=== PATIENT | female | born 1995 | race Caucasian/White ===

== ENCOUNTER 2025-05-01 19:51 | Emergency (ER) | payer SELFPAY ==
[~2025-05-01] VITALS: Ht 172.7 cm; Wt 125.0 kg
[2025-05-01 19:54] VITALS: O2SAT 99
[2025-05-01 19:58] VITALS: BP 122/70; PULSE 65; RESP 18; TEMP 36.9; O2SAT 100
[2025-05-01] MEDS ORDERED: KETOROLAC 30MG/ML VIAL IM ONE (21:15)
[2025-05-01] MEDS ORDERED: KETO10TA2 MT (21:25)
== END 2025-05-01 21:50 | disposition left against medical advice (07) ==
LOC: ER 19:51
DX: K08.89 Other specified disorders of teeth and supporting structures (principal); Z88.0 Allergy status to penicillin
CPT/HCPCS: 99283